=== PATIENT | female | born 1990 | race American Indian/Alaskan Native ===

== ENCOUNTER 2022-02-09 14:43 | Inpatient (IN) | payer SELFPAY ==
[2022-02-09] MEDS ORDERED: SODIUM CHLORIDE 0.9% 1000 ML 1,000 ML IV ONE (17:00)
[2022-02-09] MEDS ORDERED: ONDANSETRON 4 MG/2 ML INJ IV ONE ×2 (17:00→17:58)
[2022-02-09] MEDS ORDERED: HYDROmorphone 1 MG/1 ML INJ IV ONE ×2 (17:00→19:52)
--- NOTE | 2022-02-09 17:03 | Emergency Department Report ---
ED Abdominal Pain HPI - General Chief Complaint: Abdominal Pain Stated Complaint: ABDOMINAL PAIN/NAUSEA VOMITING PUI?: No Time Seen by Provider: 02/09/22 16:59 Source: EMS Mode of arrival: Stretcher Limitations: No Limitations - History of Present Illness Initial Comments: Patient is a 31-year-old female that presents emergency room with complaints of abdominal pain. Patient states the abdominal pain is generalized. Patient states the pain started 3 days ago. Patient dates the pain is worsening. Patient states it is a stabbing and sharp pain. Patient also complains of nausea and vomiting. Patient states she is not had anything to eat for 3 days. Patient states that her nausea and vomiting started 3 days ago. Patient states her nausea and vomiting is becoming more frequent and worsening. Patient denies blood in her vomitus. Patient denies blood in her stool. Patient denies diarrhea. Patient denies recent travel. Patient denies recent international travel. Patient denies exposure to the novel coronavirus. Patient denies sick contacts. Patient denies fever and chills. Patient denies cough. Patient denies diarrhea. Patient denies coming in contact with anybody with symptoms of the novel coronavirus. MD Complaint: abdominal pain -: Sudden Location: diffuse Radiation: none Migration to: no migration Severity: severe Severity scale (0 -10): 10 Quality: stabbing, sharp Consistency: constant Improves With: rest Worsens With: eating, vomiting, movement Associated Symptoms: nausea, vomiting. denies: diarrhea, fever, chills, constipation, dysuria, hematemesis, hematochezia, melena, hematuria, syncope - Related Data LMP (females 10-50): last week Home Medications Medication Instructions Recorded Confirmed Last Taken No Known Home Medications [No 02/09/22 02/09/22 Unknown Reported Home Medications] Allergies Allergy/AdvReac Type Severity Reaction Status Date / Time aspirin Allergy Unknown Verified 02/09/22 14:59 ED Review of Systems ROS: Stated complaint: ABDOMINAL PAIN/NAUSEA VOMITING Other details as noted in HPI Constitutional: denies: chills, fever Eyes: denies: eye pain, eye discharge, vision change ENT: denies: ear pain, throat pain Respiratory: denies: cough, shortness of breath, wheezing Cardiovascular: denies: chest pain, palpitations Endocrine: no symptoms reported Gastrointestinal: as per HPI, abdominal pain, nausea, vomiting. denies: diarrhea Genitourinary: denies: urgency, dysuria, discharge Musculoskeletal: denies: back pain, joint swelling, arthralgia Skin: denies: rash, lesions Neurological: denies: headache, weakness, paresthesias Psychiatric: denies: anxiety, depression Hematological/Lymphatic: denies: easy bleeding, easy bruising ED Past Medical Hx - Past Medical History Previous Medical History?: Yes Hx CVA: Yes Hx Asthma: Yes - Surgical History Past Surgical History?: No - Family History Family history: no significant - Social History Smoking Status: Never Smoker Substance Use Type: None - Medications Home Medications: Home Medications Medication Instructions Recorded Confirmed Last Taken Type No Known Home Medications [No 02/09/22 02/09/22 Unknown History Reported Home Medications] ED Physical Exam - General Limitations: No Limitations General appearance: alert, in no apparent distress - Head Head exam: Present: atraumatic, normocephalic - Eye Eye exam: Present: normal appearance - ENT ENT exam: Present: mucous membranes moist - Neck Neck exam: Present: normal inspection - Respiratory Respiratory exam: Present: normal lung sounds bilaterally. Absent: respiratory distress - Cardiovascular Cardiovascular Exam: Present: regular rate, normal rhythm. Absent: systolic murmur, diastolic murmur, rubs, gallop - GI/Abdominal GI/Abdominal exam: Present: soft, tenderness (Generalized tenderness to palpation.), normal bowel sounds - Extremities Exam Extremities exam: Present: normal inspection - Back Exam Back exam: Present: normal inspection - Neurological Exam Neurological exam: Present: alert, oriented X3 - Psychiatric Psychiatric exam: Present: normal affect, normal mood - Skin Skin exam: Present: warm, dry, intact, normal color. Absent: rash ED Course Vital Signs 02/09/22 02/09/22 02/09/22 14:58 17:51 17:53 Temperature 97.8 F 98.4 F Pulse Rate 78 69 Respiratory 18 16 Rate Blood Pressure 148/74 124/68 [Right] O2 Sat by Pulse 98 99 99 Oximetry - Reevaluation(s) Reevaluation #1: Patient still complaining of severe nausea vomiting and abdominal pain 02/09/22 17:49 Reevaluation #2: Patient still complaining of abdominal pain and nausea and vomiting. Patient was given more medications. 02/09/22 18:04 Reevaluation #3: Patient still complaining of pain and nausea and vomiting. Patient was given more medications. Nurses unable to obtain IV access. Started ultrasound-guided right EJ. See procedure note. 02/09/22 18:25 Reevaluation #4: Patient resting comfortably. The patient's on the case monitor. Patient vital signs are stable. 02/09/22 20:06 Reevaluation #5: I discussed all results with patient. I discussed plan of care with patient. Patient agrees with plan of care and admission. Patient to be admitted to the hospitalist service. 02/09/22 23:06 - Consultations Consultation #1: Hospitalist consulted for admission. Hospitalist to admit patient. 02/09/22 23:06 - EJ/Peripheral Line Neck R Time Out Performed: Yes Indications: nurses unable to establis Skin Cleansed in Sterile Fashion: Yes Size: 18 Dressing Placed: Tegaderm, tape Patient Tolerated Procedure: well, no complications Additional Comments: EJ was placed ultrasound-guided. ED Medical Decision Making - Lab Data Result diagrams: 02/09/22 17:17 02/09/22 17:17 - Radiology Data Radiology results: report reviewed CT ABDOMEN AND PELVIS WITHOUT CONTRAST INDICATION / CLINICAL INFORMATION: Abdominal Pain. TECHNIQUE: Axial CT images were obtained through the abdomen and pelvis without IV contrast. All CT scans at this location are performed using CT dose reduction for [employer] by means of automated exposure control. COMPARISON: None available. FINDINGS: LOWER CHEST: No significant abnormality. LIVER: No significant abnormality. GALLBLADDER: No significant abnormality. BILE DUCTS: No significant abnormality. PANCREAS: No significant abnormality. SPLEEN: No significant abnormality. ADRENALS: No significant abnormality. RIGHT KIDNEY and URETER: Slightly prominent with questionable right perinephric stranding.. LEFT KIDNEY and URETER: No significant abnormality. STOMACH and SMALL BOWEL: No significant abnormality. COLON: No significant abnormality. APPENDIX: No significant abnormality. PERITONEUM: No free fluid. No free air. No fluid collection. LYMPH NODES: No significant adenopathy. AORTA and ARTERIES: No significant abnormality. IVC and VEINS: No significant abnormality. URINARY BLADDER: No significant abnormality. REPRODUCTIVE ORGANS: No significant abnormality. ADDITIONAL FINDINGS: None. SKELETAL SYSTEM: No significant abnormality. IMPRESSION: The right kidney appears slightly prominent with respect to the left kidney and there is slight perinephric stranding. If there is clinical concern for pyelonephritis CT of the abdomen and pelvis with IV contrast is suggested for further evaluation if better characterization is desired. No evidence of nephrolithiasis. - Medical Decision Making Patient is a 31-year-old female who presents emergency room with complaints abdominal pain and nausea vomiting. Patient's abdominal pain was difficult to manage. Patient required multiple doses of Dilaudid. Patient's had intractable nausea and vomiting. Patient required multiple medications to include Zofran, Haldol, Phenergan. I also had to place a ultrasound-guided EJ in the ER due to nurse unable to obtain IV access. Patient finally able to calm down for a CT scan. Patient had labs done which were essentially unremarkable. Patient's CT was done. Patient's CT shows findings consistent with perinephric stranding and pyelonephritis. Patient given IV fluids and IV antibiotics in the ER. Patient admitted to the hospital service for further evaluation and treatment. Critical care time documented due to the multiple reassessments, prolonged time at the bedside, interpretation of diagnostics and labs. - Differential Diagnosis UTI, gastroenteritis, bowel obstruction, appendicitis, Critical Care Time: Yes Critical care time in (mins) excluding proc time.: 35 Critical care attestation.: If time is entered above; I have spent that time in minutes in the direct care of this critically ill patient, excluding procedure time. Critical Care Time: 35 minutes ED Disposition Clinical Impression: Pyelonephritis, Intractable nausea and vomiting, Intractable abdominal pain Abdominal pain Qualifiers: Abdominal location: generalized Qualified Code(s): R10.84 - Generalized abdominal pain Nausea & vomiting Qualifiers: Vomiting type: unspecified Qualified Code(s): R11.2 - Nausea with vomiting, unspecified Disposition: 09 ADMITTED INPATIENT Is pt being admited?: Yes Does the pt Need Aspirin: No Condition: Critical Instructions: Abdominal Pain (ED) Time of Disposition: 22:49
[2022-02-09 17:53] LABS: Basophils # (Auto) 0.1 K/mm3 (0.0-0.1); Basophils % (Auto) 0.6 % (0.0-1.8); Eosinophils % (Auto) 0.1 % (0.0-4.3); Hematocrit 39.8 % (30.3-42.9); Hemoglobin 13.8 gm/dl (10.1-14.3); Lymphocytes # (Auto) 0.7 K/mm3 (1.2-5.4); Lymphocytes % (Auto) 7.2 % (13.4-35.0); Mean Corpuscular HGB Conc 35 % (30-34); Mean Corpuscular Volume 89 fl (79-97); Monocytes # (Auto) 0.5 K/mm3 (0.0-0.8); Monocytes % (Auto) 4.6 % (0.0-7.3); Platelet Count 288 K/mm3 (140-440); Red Blood Count 4.48 M/mm3 (3.65-5.03); Red Cell Distribution Width 13.5 % (13.2-15.2)
[2022-02-09 18:31] LABS: Alanine Aminotransferase 18 units/L (7-56); Albumin 4.9 g/dL (3.9-5); BUN/Creatinine Ratio 9; Bilirubin,Direct < 0.2 mg/dL (0-0.2); Blood Urea Nitrogen 6 mg/dL (7-17); Calcium 9.5 mg/dL (8.4-10.2); Hemolysis Index 18
[2022-02-09] MEDS ORDERED: PHENYTOIN 100 MG/2 ML VIAL IV ONE (18:36)
[2022-02-09] MEDS ORDERED: HYDROmorphone 1 MG/1 ML INJ IM ONE (18:37)
[2022-02-09] MEDS ORDERED: PROMETHAZINE 50 MG RECT SUPP PR ONE (18:54)
[2022-02-09] MEDS ORDERED: HALOPERIDOL LACTATE 5 MG/1 ML INJ IM ONE (18:55)
[2022-02-09 21:33] LABS: Bilirubin,Urine NEG (Negative); Blood,Urine MOD (Negative); Color,Urine Yellow (Yellow); Mucus,Urine 3+ /HPF; Urobilinogen,Urine < 2.0 mg/dL (<2.0)
--- NOTE | 2022-02-09 21:52 | Cat Scan Report ---
CT ABDOMEN AND PELVIS WITHOUT CONTRAST INDICATION / CLINICAL INFORMATION: Abdominal Pain. TECHNIQUE: Axial CT images were obtained through the abdomen and pelvis without IV contrast. All CT scans at [facility] location are performed using CT dose reduction for [place] by means of automated exposure control. COMPARISON: None available. FINDINGS: LOWER CHEST: No significant abnormality. LIVER: No significant abnormality. GALLBLADDER: No significant abnormality. BILE DUCTS: No significant abnormality. PANCREAS: No significant abnormality. SPLEEN: No significant abnormality. ADRENALS: No significant abnormality. RIGHT KIDNEY and URETER: Slightly prominent with questionable right perinephric stranding.. LEFT KIDNEY and URETER: No significant abnormality. STOMACH and SMALL BOWEL: No significant abnormality. COLON: No significant abnormality. APPENDIX: No significant abnormality. PERITONEUM: No free fluid. No free air. No fluid collection. LYMPH NODES: No significant adenopathy. AORTA and ARTERIES: No significant abnormality. IVC and VEINS: No significant abnormality. URINARY BLADDER: No significant abnormality. REPRODUCTIVE ORGANS: No significant abnormality. ADDITIONAL FINDINGS: None. SKELETAL SYSTEM: No significant abnormality. IMPRESSION: The right kidney appears slightly prominent with respect to the left kidney and there is slight perin ephric stranding. If there is clinical concern for pyelonephritis CT of the abdomen and pelvis with I V contrast is suggested for further evaluation if better characterization is desired. No evidence of nephrolithiasis. Signer Name: Nikhil Asher MD Signed: 02/09/2022 9:48 PM Workstation Name: [id number]
[2022-02-09] MEDS ORDERED: cefTRIAXone/NS 2 GM/100 ML 2 GM/100 ML BAG IV ONE (22:47)
[2022-02-09] MEDS ORDERED: MORPHINE 2 MG/1 ML INJ IV PRN (23:28)
[2022-02-09] MEDS ORDERED: ACETAMINOPHEN 325 MG TAB PO PRN (23:28)
[2022-02-09] MEDS ORDERED: ONDANSETRON 4 MG/2 ML INJ IV PRN (23:28)
[2022-02-09] MEDS ORDERED: MAGNESIUM HYDROXIDE (MOM) ORAL LIQD UDC PO PRN (23:28)
--- NOTE | 2022-02-09 23:37 | History and Physical Report ---
History of Present Illness Date of examination: 02/09/22 Date of admission: 02/09/2022 Chief complaint: Nausea and Vomiting Abdominal Pain History of present illness: 31-year-old -[place] female presents to the emergency room today complaining of abdominal pain. Abdominal pain is said to be generalized. Pain has been ongoing for the past 3 days. She has had associated nausea and vomiting but denies any diarrhea. Denies any hematuria or dysuria. Denies any bright red blood per rectum. Patient denies any sick contacts and no recent travel. Denies any contact with anyone with COVID-19. Work-up in the emergency room today, urinalysis was unremarkable. CT of the abdomen and pelvis reveals slightly prominent right perinephric stranding Past History Past Medical History: stroke, other (Asthma) Past Surgical History: No surgical history Social history: smoking (Current daily smoker) Family history: no significant family history Medications and Allergies Allergies Allergy/AdvReac Type Severity Reaction Status Date / Time aspirin Allergy Unknown Verified 02/09/22 14:59 Home Medications Medication Instructions Recorded Confirmed Last Taken Type No Known Home Medications [No 02/09/22 02/09/22 Unknown History Reported Home Medications] Active Meds: Active Medications Acetaminophen (Acetaminophen 325 Mg Tab) 650 mg PO Q4H PRN PRN Reason: Pain MILD(1-3)/Fever >100.5/[place] Sodium Chloride (Nacl 0.9% 1000 Ml) 1,000 mls @ 125 mls/hr IV DIRECT ALYSSIA Ceftriaxone Sodium (Rocephin/Ns 1 Gm/50 Ml) 1 gm in 50 mls @ 100 mls/hr IV Q24H ALYSSIA; Protocol Magnesium Hydroxide (Magnesium Hydroxide (Mom) Oral Liqd Udc) 30 ml PO Q4H PRN PRN Reason: Constipation Morphine Sulfate (Morphine 2 Mg/1 Ml Inj) 2 mg IV Q4H PRN PRN Reason: Pain, Moderate (4-6) Morphine Sulfate (Morphine 4 Mg/1 Ml Inj) 4 mg IV Q4H PRN PRN Reason: Pain , Severe (7-10) Ondansetron HCl (Ondansetron 4 Mg/2 Ml Inj) 4 mg IV Q8H PRN PRN Reason: Nausea And Vomiting Sodium Chloride (Sodium Chloride 0.9% 10 Ml Flush Syringe) 10 ml IV BID ALYSSIA Sodium Chloride (Sodium Chloride 0.9% 10 Ml Flush Syringe) 10 ml IV PRN PRN PRN Reason: LINE FLUSH Review of Systems Constitutional: no fever, no chills Ears, nose, mouth and throat: no nasal congestion, no sore throat Cardiovascular: no chest pain, no palpitations Respiratory: no cough, no shortness of breath Gastrointestinal: abdominal pain, nausea, vomiting, no diarrhea Genitourinary Female: no pelvic pain, no flank pain Musculoskeletal: no neck pain, no low back pain Integumentary: no rash, no pruritis Neurological: no headaches, no confusion Psychiatric: no anxiety, no depression Endocrine: no polyphagia, no polydipsia, no polyuria, no nocturia Exam - Constitutional Vitals: Temp Pulse Resp BP Pulse Ox 98.4 F 69 16 124/68 99 02/09/22 17:53 02/09/22 17:53 02/09/22 17:53 02/09/22 17:53 02/09/22 17:53 General appearance: Present: no acute distress, well-nourished - EENT Eyes: Present: PERRL, EOM intact. Absent: scleral icterus ENT: hearing intact, clear oral mucosa, dentition normal - Neck Neck: Present: supple, normal ROM - Respiratory Respiratory effort: normal Respiratory: bilateral: CTA - Cardiovascular Rhythm: regular Heart Sounds: Present: S1 & S2. Absent: gallop, systolic murmur, diastolic murmur, rub, click - Extremities Extremities: no ischemia, pulses intact, pulses symmetrical, No edema, normal temperature, normal color, Full ROM Peripheral Pulses: within normal limits - Abdominal General gastrointestinal: Present: soft, tender (Mild suprapubic tenderness), non-distended, normal bowel sounds. Absent: mass Results - Labs CBC & Chem 7: 02/09/22 17:17 02/10/22 04:27 Labs: Abnormal lab results 02/09/22 02/09/22 02/09/22 Range/Units 17:17 17:17 Unknown MCHC 35 H (30-34) % Lymph % (Auto) 7.2 L (13.4-35.0) % Lymph # (Auto) 0.7 L (1.2-5.4) K/mm3 Seg Neutrophils % 87.5 H (40.0-70.0) % Seg Neutrophils # 9.0 H (1.8-7.7) K/mm3 Carbon Dioxide 19 L (22-30) mmol/L BUN 6 L (7-17) mg/dL Glucose 125 H (65-100) mg/dL Urine pH 8.0 H (5.0-7.0) Assessment and Plan - Patient Problems (1) Pyelonephritis Current Visit: Yes Status: Acute Plan to address problem: Patient commenced on empiric IV antibiotics. (2) Intractable abdominal pain Current Visit: Yes Status: Acute Plan to address problem: Possibly secondary to the pyelonephritis. Reviewed IV analgesic medication. (3) Intractable nausea and vomiting Current Visit: Yes Status: Acute Plan to address problem: Patient placed on antiemetic. (4) DVT prophylaxis Current Visit: Yes Status: Acute Plan to address problem: Patient placed on subcutaneous heparin. (5) Full code status Current Visit: Yes Status: Acute Plan to address problem: Patient is full code.
[2022-02-10] MEDS: SODIUM CHLORIDE 0.9% 1000 ML 1,000 ML IV SCH ×4 (03:02→21:33)
[2022-02-10 05:29] LABS: Blood Urea Nitrogen 5 mg/dL (7-17); Calcium 8.4 mg/dL (8.4-10.2); Hemolysis Index 1
[2022-02-10 05:30] LABS: BUN/Creatinine Ratio 8
[2022-02-10] MEDS: HEPARIN 5,000 UNIT/1 ML VIAL SUB-Q SCH ×3 (09:25→21:33)
--- NOTE | 2022-02-10 10:46 | Progress Note ---
Assessment and Plan Assessment and plan: 31-year-old -[place] female presents to the emergency room complaining of generalized abdominal pain of 3 days duration associated with nausea and vomiting but denies any diarrhea. No hematochezia. Urinalysis was unremarkable but CT of the abdomen and pelvis reveals slightly prominent right perinephric stranding Pyelonephritis Abdominal pain Intractable nausea and vomiting 02/10/2022. Continue IV antibiotics for now. Follow-up blood and urine cultures. History Interval history: No new issues overnight Hospitalist Physical - Constitutional Vitals: Temp Pulse Resp BP Pulse Ox 98.4 F 73 12 109/58 98 02/09/22 17:53 02/10/22 03:44 02/10/22 03:44 02/10/22 03:44 02/10/22 08:56 General appearance: Present: no acute distress, well-nourished - EENT Eyes: Present: PERRL, EOM intact ENT: hearing intact, clear oral mucosa, dentition normal - Neck Neck: Present: supple, normal ROM - Respiratory Respiratory effort: normal Respiratory: bilateral: CTA - Cardiovascular Rhythm: regular Heart Sounds: Present: S1 & S2. Absent: gallop, rub - Extremities Extremities: no ischemia, No edema, Full ROM - Abdominal General gastrointestinal: soft, non-tender, non-distended, normal bowel sounds - Integumentary Integumentary: Present: clear, warm, dry - Neurologic Neurologic: CNII-XII intact, moves all extremities Results - Labs CBC & Chem 7: 02/09/22 17:17 02/10/22 04:27 Labs: Laboratory Last Values WBC 10.3 K/mm3 (4.5-11.0) 02/09/22 17:17 RBC 4.48 M/mm3 (3.65-5.03) 02/09/22 17:17 Hgb 13.8 gm/dl (10.1-14.3) 02/09/22 17:17 Hct 39.8 % (30.3-42.9) 02/09/22 17:17 MCV 89 fl (79-97) 02/09/22 17:17 MCH 31 pg (28-32) 02/09/22 17:17 MCHC 35 % (30-34) H 02/09/22 17:17 RDW 13.5 % (13.2-15.2) 02/09/22 17:17 Plt Count 288 K/mm3 (140-440) 02/09/22 17:17 Lymph % (Auto) 7.2 % (13.4-35.0) L 02/09/22 17:17 [place] % (Auto) 4.6 % (0.0-7.3) 02/09/22 17:17 Eos % (Auto) 0.1 % (0.0-4.3) 02/09/22 17:17 Baso % (Auto) 0.6 % (0.0-1.8) 02/09/22 17:17 Lymph # (Auto) 0.7 K/mm3 (1.2-5.4) L 02/09/22 17:17 [place] # (Auto) 0.5 K/mm3 (0.0-0.8) 02/09/22 17:17 Eos # (Auto) 0.0 K/mm3 (0.0-0.4) 02/09/22 17:17 Baso # (Auto) 0.1 K/mm3 (0.0-0.1) 02/09/22 17:17 Seg Neutrophils % 87.5 % (40.0-70.0) H 02/09/22 17:17 Seg Neutrophils # 9.0 K/mm3 (1.8-7.7) H 02/09/22 17:17 Sodium 140 mmol/L (137-145) 02/10/22 04:27 Potassium 3.9 mmol/L (3.6-5.0) 02/10/22 04:27 Chloride 107.6 mmol/L (98-107) H 02/10/22 04:27 Carbon Dioxide 21 mmol/L (22-30) L 02/10/22 04:27 Anion Gap 15 mmol/L 02/10/22 04:27 BUN 5 mg/dL (7-17) L 02/10/22 04:27 Creatinine 0.6 mg/dL (0.6-1.2) 02/10/22 04:27 Estimated GFR > 60 ml/min 02/10/22 04:27 BUN/Creatinine Ratio 8 % 02/10/22 04:27 Glucose 90 mg/dL (65-100) 02/10/22 04:27 Calcium 8.4 mg/dL (8.4-10.2) 02/10/22 04:27 Total Bilirubin 0.50 mg/dL (0.1-1.2) 02/09/22 17:17 Direct Bilirubin < 0.2 mg/dL (0-0.2) 02/09/22 17:17 Indirect Bilirubin 0.3 mg/dL 02/09/22 17:17 AST 21 units/L (5-40) 02/09/22 17:17 ALT 18 units/L (7-56) 02/09/22 17:17 Alkaline Phosphatase 76 units/L (35-129) 02/09/22 17:17 Total Protein 7.4 g/dL (6.3-8.2) 02/09/22 17:17 Albumin 4.9 g/dL (3.9-5) 02/09/22 17:17 Albumin/Globulin Ratio 2.0 % 02/09/22 17:17 HCG, Qual Negative (Negative) 02/09/22 17:17 Urine Color Yellow (Yellow) 02/09/22 Unknown Urine Turbidity Clear (Clear) 02/09/22 Unknown Urine pH 8.0 (5.0-7.0) H 02/09/22 Unknown Ur Specific [place] 1.028 (1.003-1.030) 02/09/22 Unknown Urine Protein 100 mg/dl mg/dL (Negative) 02/09/22 Unknown Urine Glucose (UA) Neg mg/dL (Negative) 02/09/22 Unknown Urine Ketones 80 mg/dL (Negative) 02/09/22 Unknown Urine Blood Mod (Negative) 02/09/22 Unknown Urine Nitrite Neg (Negative) 02/09/22 Unknown Urine Bilirubin Neg (Negative) 02/09/22 Unknown Urine Urobilinogen < 2.0 mg/dL (<2.0) 02/09/22 Unknown Ur Leukocyte Esterase Neg (Negative) 02/09/22 Unknown Urine WBC (Auto) 1.0 /HPF (0.0-6.0) 02/09/22 Unknown Urine RBC (Auto) 11.0 /HPF (0.0-6.0) 02/09/22 Unknown U Epithel Cells (Auto) 2.0 /HPF (0-13.0) 02/09/22 Unknown Urine Mucus 3+ /HPF 02/09/22 Unknown Koch/IV: Voiding Method Toilet Active Medications - Current Medications Current Medications: Generic Name Dose Route Start Last Admin Trade Name Freq PRN Reason Stop Dose Admin Acetaminophen 650 mg 02/09/22 23:28 Acetaminophen 325 Mg Tab PO Q4H PRN Pain MILD(1-3)/Fever >100.5/[place] Heparin Sodium (Porcine) 5,000 unit 02/10/22 08:00 02/10/22 09:25 Heparin 5,000 Unit/1 Ml Vial SUB-Q 5,000 unit Q8HR ALYSSIA Administration Sodium Chloride 1,000 mls @ 125 mls/hr 02/09/22 23:30 02/10/22 03:02 Nacl 0.9% 1000 Ml IV 125 mls/hr DIRECT ALYSSIA Administration Ceftriaxone Sodium 1 gm in 50 mls @ 100 mls/hr 02/10/22 23:00 Rocephin/Ns 1 Gm/50 Ml IV Q24H ALYSSIA Protocol Magnesium Hydroxide 30 ml 02/09/22 23:28 Magnesium Hydroxide (Mom) Oral Liqd Udc PO Q4H PRN Constipation Morphine Sulfate 2 mg 02/09/22 23:28 Morphine 2 Mg/1 Ml Inj IV Q4H PRN Pain, Moderate (4-6) Morphine Sulfate 4 mg 02/09/22 23:28 Morphine 4 Mg/1 Ml Inj IV Q4H PRN Pain , Severe (7-10) Ondansetron HCl 4 mg 02/09/22 23:28 Ondansetron 4 Mg/2 Ml Inj IV Q8H PRN Nausea And Vomiting Sodium Chloride 10 ml 02/10/22 10:00 02/10/22 09:25 Sodium Chloride 0.9% 10 Ml Flush Syringe IV 10 ml BID ALYSSIA Administration Sodium Chloride 10 ml 02/09/22 23:28 Sodium Chloride 0.9% 10 Ml Flush Syringe IV PRN PRN LINE FLUSH
--- NOTE | 2022-02-10 14:34 | Event Note ---
Date: 02/10/22 Patient admitted with abdominal pain and N/V. CT with perinephric stranding. Given completely normal urine I doubt an acute pyelonephritis. Afebrile and normal white count. Would stop antibiotics. Full consult Saturday
[2022-02-10] MEDS: MORPHINE 4 MG/1 ML INJ IV PRN (19:07)
[2022-02-10] MEDS ORDERED: cefTRIAXone/NS 1 GM/50 ML 1 GM/50 ML BAG IV SCH (23:00)
[2022-02-11] MEDS: SODIUM CHLORIDE 0.9% 1000 ML 1,000 ML IV SCH (05:39)
[2022-02-11] MEDS: HEPARIN 5,000 UNIT/1 ML VIAL SUB-Q SCH (05:45)
[2022-02-11 06:42] LABS: Basophils % (Auto) 0.6 % (0.0-1.8); Eosinophils # (Auto) 0.1 K/mm3 (0.0-0.4); Eosinophils % (Auto) 1.7 % (0.0-4.3); Hematocrit 35.6 % (30.3-42.9); Hemoglobin 11.7 gm/dl (10.1-14.3); Lymphocytes # (Auto) 1.4 K/mm3 (1.2-5.4); Lymphocytes % (Auto) 20.2 % (13.4-35.0); Mean Corpuscular HGB Conc 33 % (30-34); Mean Corpuscular Volume 90 fl (79-97); Monocytes # (Auto) 0.6 K/mm3 (0.0-0.8); Monocytes % (Auto) 9.1 % (0.0-7.3); Platelet Count 269 K/mm3 (140-440); Red Blood Count 3.97 M/mm3 (3.65-5.03); Red Cell Distribution Width 13.7 % (13.2-15.2)
[2022-02-11 06:56] LABS: Blood Urea Nitrogen 4 mg/dL (7-17); Calcium 8.2 mg/dL (8.4-10.2); Hemolysis Index 20
[2022-02-11 07:01] LABS: BUN/Creatinine Ratio 6
[2022-02-11] MEDS: MORPHINE 4 MG/1 ML INJ IV PRN (07:44)
--- NOTE | 2022-02-11 10:23 | Discharge Summary ---
Providers - Providers Date of Admission: 02/09/22 23:29 Date of discharge: 02/11/22 Attending physician: BASIM SILVA 02/10/22 10:46 Consult to Physician [CONS] Routine Comment: Consulting Provider: ABE PIEDRA Physician Instructions: Reason For Exam: Perinephric stranding Primary care physician: SISAL PICKER Hospitalization Reason for admission: Abdominal pain Condition: Critical Hospital course: 31-year-old -[place] female presents to the emergency room complaining of generalized abdominal pain of 3 days duration associated with nausea and vomiting but denies any diarrhea. No hematochezia. Urinalysis was unremarkable but CT of the abdomen and pelvis reveals slightly prominent right perinephric stranding. The patient was initially admitted with diagnosis of abdominal pain, pyelonephritis and intractable nausea and vomiting. The patient was treated with IV antibiotics and IV fluid hydration. ID was consulted and felt that given completely normal urine, the patient likely did not have acute pyelonephritis. The patient remained afebrile and normal white count. Antibiot ics were discontinued. Nausea and vomiting resolved. Etiology likely secondary to a viral gastroenteritis. Abdominal pain resolved. Patient is felt to have received maximal hospital benefit and will be discharged home. Dedicated discharge time 32 minutes. Disposition: 01 HOME / SELF CARE / HOMELESS Final Discharge Diagnosis (Prints w/discharge instructions): Abdominal pain, viral gastroenteritis, intractable nausea vomiting Core Measure Documentation - Palliative Care Palliative Care/ Comfort Measures: Not Applicable - Core Measures Any of the following diagnoses?: none Exam - Constitutional Vitals: Temp Pulse Resp BP Pulse Ox 98.5 F 73 18 121/77 100 02/11/22 04:49 02/11/22 04:49 02/11/22 04:49 02/11/22 04:49 02/11/22 07:15 General appearance: Present: no acute distress, well-nourished - EENT Eyes: Present: PERRL ENT: hearing intact, clear oral mucosa - Neck Neck: Present: supple, normal ROM - Respiratory Respiratory effort: normal Respiratory: bilateral: CTA - Cardiovascular Heart Sounds: Present: S1 & S2. Absent: rub, click - Extremities Extremities: pulses symmetrical, No edema Peripheral Pulses: within normal limits - Abdominal General gastrointestinal: Present: soft, non-tender, non-distended, normal bowel sounds Female genitourinary: Present: normal - Integumentary Integumentary: Present: clear, warm, dry - Musculoskeletal Musculoskeletal: gait normal, strength equal bilaterally - Psychiatric Psychiatric: appropriate mood/affect, intact judgment & insight - Neurologic Neurologic: CNII-XII intact, moves all extremities Plan Activity: advance as tolerated Weight Bearing Status: Weight Bear as Tolerated Diet: regular Follow up with: PRIMARY CARE, [Primary Care Provider] - 3-5 Days
[2022-02-11 13:25] VITALS: BP 169/75
== END 2022-02-11 20:16 | disposition home or self-care (01) | DRG 392 ==
LOC: ED 14:43 → 3A 23:29
PROVIDERS: ADMIT Internal Medicine Geriatric Medicine; ATTEND Hospitalist
DX: A08.39 Other viral enteritis (principal); J45.909 Unspecified asthma, uncomplicated; Z88.6 Allergy status to analgesic agent; Z82.3 Family history of stroke
CPT/HCPCS: 36415; 74176; 80048; 80076; 81001; 84703; 85025; 87040; 96365; 96372; 96375; 96376; 99291; G0378; J0696; J1170; J1630; J1644; J2270; J2405; J7030

== ENCOUNTER 2022-02-13 10:08 | Emergency (ER) | payer SELFPAY ==
[2022-02-13 11:26] LABS: Basophils % (Auto) 0.3 % (0.0-1.8); Eosinophils % (Auto) 0.1 % (0.0-4.3); Hematocrit 39.7 % (30.3-42.9); Hemoglobin 12.9 gm/dl (10.1-14.3); Lymphocytes # (Auto) 0.7 K/mm3 (1.2-5.4); Lymphocytes % (Auto) 7.5 % (13.4-35.0); Mean Corpuscular HGB Conc 33 % (30-34); Mean Corpuscular Volume 90 fl (79-97); Monocytes # (Auto) 0.4 K/mm3 (0.0-0.8); Monocytes % (Auto) 4.6 % (0.0-7.3); Platelet Count 313 K/mm3 (140-440); Red Cell Distribution Width 13.3 % (13.2-15.2)
[2022-02-13 11:42] LABS: Alanine Aminotransferase 17 units/L (7-56); Albumin 4.7 g/dL (3.9-5); Calcium 9.5 mg/dL (8.4-10.2); Hemolysis Index 1
[2022-02-13 11:55] LABS: Bilirubin,Urine NEG (Negative); Blood,Urine SM (Negative); Color,Urine Yellow (Yellow); Mucus,Urine 1+ /HPF; Protein,Urine <15 mg/dL mg/dL (Negative)
[2022-02-13 11:58] LABS: BUN/Creatinine Ratio 9; Blood Urea Nitrogen 6 mg/dL (7-17)
[2022-02-13 12:05] LABS: HCG Qualitative,Urine Negative (Negative)
--- NOTE | 2022-02-13 12:20 | Emergency Department Report ---
ED Abdominal Pain HPI - General Chief Complaint: Nausea/Vomiting/Diarrhea Stated Complaint: VOMITTING PUI?: No Time Seen by Provider: 02/13/22 11:38 Source: patient, EMS Mode of arrival: Stretcher Limitations: No Limitations - History of Present Illness Initial Comments: Patient is a 31-year-old female that comes to the emergency room with complaints of generalized abdominal pain and vomiting. She has had no active vomiting in the ER. She denies recent use of marijuana. Denies alcohol use. Denies any dysuria or vaginal discharge Patient lives with her Patient was just here on 02-09 and admitted for a full work-up. Refer to EMR. After leaving here she went to another ER and was prescribed Cipro, Flagyl, Pepcid and promethazine. She states that nothing anybody does making her symptoms better. She has not followed up with GI. Review EMR regarding prior visit. Last menstrual period 2 days ago Patient was found sitting in a wheelchair in the waiting room. I brought a group the patient's back to fast-track leaving her behind, telling her I would come back and get her. The next thing I turned around and she was in room 39 after ambulating to the room. She is repetitively asking for pain medications. Patient has no hypotension, tachycardia or fever. Her abdominal exam is benign MD Complaint: abdominal pain -: Gradual, days(s) Location: diffuse Severity scale (0 -10): 10 Quality: aching Improves With: nothing Worsens With: nothing Associated Symptoms: denies other symptoms, nausea, vomiting. denies: diarrhea, fever, chills, constipation, dysuria, hematemesis, hematochezia, melena, hematuria, anorexia, syncope - Related Data Home Medications Medication Instructions Recorded Confirmed Last Taken No Known Home Medications [No 02/09/22 02/09/22 Unknown Reported Home Medications] Allergies Allergy/AdvReac Type Severity Reaction Status Date / Time aspirin Allergy Unknown Verified 02/13/22 10:11 ED Review of Systems ROS: Stated complaint: VOMITTING Other details as noted in HPI Comment: All other systems reviewed and negative ED Past Medical Hx - Past Medical History Previous Medical History?: Yes Hx CVA: Yes Hx Congestive Heart Failure: No Hx Diabetes: No Hx Asthma: Yes Additional medical history: 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 - Surgical History Past Surgical History?: No - Family History Family history: no significant - Social History Smoking Status: Never Smoker Substance Use Type: Marijuana - Medications Home Medications: Home Medications Medication Instructions Recorded Confirmed Last Taken Type No Known Home Medications [No 02/09/22 02/09/22 Unknown History Reported Home Medications] ED Physical Exam - General Limitations: No Limitations General appearance: alert, in no apparent distress - Head Head exam: Present: atraumatic, normocephalic - Eye Eye exam: Present: normal appearance - ENT ENT exam: Present: mucous membranes moist - Neck Neck exam: Present: normal inspection - Respiratory Respiratory exam: Present: normal lung sounds bilaterally. Absent: respiratory distress - Cardiovascular Cardiovascular Exam: Present: regular rate, normal rhythm. Absent: systolic murmur, diastolic murmur, rubs, gallop - GI/Abdominal GI/Abdominal exam: Present: soft, normal bowel sounds - Extremities Exam Extremities exam: Present: normal inspection - Back Exam Back exam: Present: normal inspection - Neurological Exam Neurological exam: Present: alert, oriented X3 - Psychiatric Psychiatric exam: Present: normal affect, normal mood - Skin Skin exam: Present: warm, dry, intact, normal color. Absent: rash ED Course Vital Signs 02/13/22 02/13/22 10:09 11:40 Temperature 98.3 F 98.6 F Pulse Rate 78 77 Respiratory 20 Rate Blood Pressure 160/86 132/85 [Left] O2 Sat by Pulse 98 99 Oximetry ED Medical Decision Making - Lab Data Result diagrams: 02/13/22 10:53 02/13/22 10:53 - Medical Decision Making Lab Results 02/13/22 02/13/22 02/13/22 Range/Units 10:53 10:53 11:40 WBC 9.0 (4.5-11.0) K/mm3 RBC 4.40 (3.65-5.03) M/mm3 Hgb 12.9 (10.1-14.3) gm/dl Hct 39.7 (30.3-42.9) % MCV 90 (79-97) fl MCH 29 (28-32) pg MCHC 33 (30-34) % RDW 13.3 (13.2-15.2) % Plt Count 313 (140-440) K/mm3 Lymph % (Auto) 7.5 L (13.4-35.0) % Davison % (Auto) 4.6 (0.0-7.3) % Eos % (Auto) 0.1 (0.0-4.3) % Baso % (Auto) 0.3 (0.0-1.8) % Lymph # (Auto) 0.7 L (1.2-5.4) K/mm3 Davison # (Auto) 0.4 (0.0-0.8) K/mm3 Eos # (Auto) 0.0 (0.0-0.4) K/mm3 Baso # (Auto) 0.0 (0.0-0.1) K/mm3 Seg Neutrophils % 87.5 H (40.0-70.0) % Seg Neutrophils # 7.8 H (1.8-7.7) K/mm3 Sodium 137 (137-145) mmol/L Potassium 3.9 (3.6-5.0) mmol/L Chloride 102.5 (98-107) mmol/L Carbon Dioxide 21 L (22-30) mmol/L Anion Gap 17 mmol/L BUN 6 L (7-17) mg/dL Creatinine 0.7 (0.6-1.2) mg/dL Estimated GFR > 60 ml/min BUN/Creatinine Ratio 9 % Glucose 122 H (65-100) mg/dL Calcium 9.5 D (8.4-10.2) mg/dL Total Bilirubin 0.50 (0.1-1.2) mg/dL AST 16 (5-40) units/L ALT 17 (7-56) units/L Alkaline Phosphatase 68 (35-129) units/L Total Protein 7.1 (6.3-8.2) g/dL Albumin 4.7 (3.9-5) g/dL Albumin/Globulin Ratio 2.0 % Lipase 49 (13-60) units/L Urine Color Yellow (Yellow) Urine Turbidity Clear (Clear) Urine pH 6.0 (5.0-7.0) Ur Specific Bradford 1.017 (1.003-1.030) Urine Protein <15 mg/dl (Negative) mg/dL Urine Glucose (UA) Neg (Negative) mg/dL Urine Ketones 20 (Negative) mg/dL Urine Blood Sm (Negative) Urine Nitrite Neg (Negative) Urine Bilirubin Neg (Negative) Urine Urobilinogen 2.0 (<2.0) mg/dL Ur Leukocyte Esterase Neg (Negative) Urine WBC (Auto) 1.0 (0.0-6.0) /HPF Urine RBC (Auto) 130.0 (0.0-6.0) /HPF U Epithel Cells (Auto) 1.0 (0-13.0) /HPF Urine Mucus 1+ /HPF Urine HCG, Qual Negative (Negative) Vital Signs 02/13/22 02/13/22 10:09 11:40 Temperature 98.3 F 98.6 F Pulse Rate 78 77 Respiratory 20 Rate Blood Pressure 160/86 132/85 [Left] O2 Sat by Pulse 98 99 Oximetry Labs are noted to have been improved from prior visit. On discharge exam she has had no active vomiting. There is no need for additional imaging. Patient offered Motrin or Tylenol for pain. Patient ambulatory and taking p.o. without difficulty. Patient being discharged home with discharge plan of care including diet, medication, activity and follow-up. She understands she needs to see a GI do ctor. She is to continue her home medication regimen - Differential Diagnosis Rule out UTI, pancreatitis, gastritis, gastroenteritis Critical care attestation.: If time is entered above; I have spent that time in minutes in the direct care of this critically ill patient, excluding procedure time. ED Disposition Clinical Impression: Drug-seeking behavior Abdominal pain Qualifiers: Abdominal location: generalized Qualified Code(s): R10.84 - Generalized abdominal pain Disposition: 01 HOME / SELF CARE / HOMELESS Is pt being admited?: No Does the pt Need Aspirin: No Condition: Stable Instructions: Abdominal Pain, Adult, [id number] Additional Instructions: Continue with your current plan of care. I have given you referral to GI. Please call them today and make an ap pointment. You are limited with regard to emergency room's and what we can do for your pain. You need a specialist evaluation Referrals: REGINO CHING MD [Staff Physician] - 3-5 Days Time of Disposition: 12:18
[2022-02-13 12:42] VITALS: BP 118/80
== END 2022-02-13 12:54 | disposition home or self-care (01) ==
LOC: ED 10:08
DX: R10.84 Generalized abdominal pain (principal); R46.89 Other symptoms and signs involving appearance and behavior; J45.909 Unspecified asthma, uncomplicated; Z88.6 Allergy status to analgesic agent
CPT/HCPCS: 36415; 80053; 81001; 81025; 83690; 85025; 99284

== ENCOUNTER 2022-03-28 09:56 | Emergency (ER) | payer SELFPAY ==
[2022-03-28 10:47] VITALS: BP 147/95
== END 2022-03-28 11:46 | disposition left against medical advice (07) ==
LOC: ED 09:56
DX: R11.10 Vomiting, unspecified (principal); Z53.21 Procedure and treatment not carried out due to patient leaving prior to being seen by health care provider